=== PATIENT | female | born 1965 | race Caucasian/White ===

== ENCOUNTER 2017-03-31 16:15 | Emergency (ER) | payer OTHER ==
[~2017-03-31] VITALS: Ht 154.9 cm; Wt 55.0 kg
[~2017-03-31 16:15] MED LIST: CYCL-36 PO; DICL50 PO; HYDR-3533 PO
[2017-03-31 16:31] VITALS: BP 122/67; PULSE 65; RESP 16; TEMP 98.3; O2SAT 97
[2017-03-31 16:50] LABS: BILIRUBIN, URINE NEG (NEG); BLOOD, URINE NEG (NEG); GLUCOSE,URINE NEG (NEG); KETONE, URINE TRACE mg/dL (NEG); NITRITE,URINE NEG (NEG); PH, URINE 8.5 (5.0-8.5); URINE LEUKOCYTE ESTERASE SMALL (NEG)
[2017-03-31 16:51] LABS: URINE COLOR YELLOW (YELLW/STRAW)
[2017-03-31 16:55] LABS: BACTERIA, URINE FEW /hpf; RBC, URINE 0-3 /hpf (0-3); SQUAMOUS EPITHELIAL CELL URINE > 8 /hpf (0-5)
[2017-03-31] MEDS ORDERED: SODIUM CHLORIDE 0.9% FLUSH 10 ML FLUSH IV FLUSH PRN (17:15)
[2017-03-31] MEDS ORDERED: KETOROLAC TROMETHAMINE 30 MG/ML (IVP) VIAL IVP ONE (17:15)
[2017-03-31 17:35] LABS: HEMATOCRIT 35.3 % (35.0-46.0); HEMOGLOBIN 12.2 GM/DL (11.6-15.3); MEAN CELL VOLUME 93.1 FL (80.0-100.0); MEAN CORPUSCULAR HEMOGLOBIN 32.2 PG (27.0-34.0); MEAN CORPUSCULAR HGB CONC 34.6 % (32.0-36.0); PLATELET COUNT 260 TH/MM3 (150-450); RED BLOOD COUNT 3.79 MIL/MM3 (4.00-5.30); RED CELL DISTRIBUTION WIDTH 12.6 % (11.6-17.2)
[2017-03-31 17:37] VITALS: RESP 16; O2SAT 98
--- NOTE | 2017-03-31 17:42 | PD ---
HPI Chief Complaint: Musculoskeletal Complaint Time Seen by Provider: 16:58 Travel History International Travel<30 days: No Contact w/Intl Traveler<30days: No Traveled to known affect area: No History of Present Illness HPI Patient is a 51-year-old female presents emergency department for evaluation of left flank pain radiating down her left hip for the past few days, she states that her primary care physician sent her here to rule out a kidney stone. Denies any dysuria, denies any trauma to the area heavy lifting. Denies any nausea vomiting or diarrhea. She states it is highly positional and when she leans to the left her worse. Symptoms are severe, left flank radiating to the left hip, associated signs and symptoms as above PFSH Past Medical History Kidney Stones: Yes Tetanus Vaccination: < 5 Years Influenza Vaccination: Yes ?: Not Menopausal: Yes Past Surgical History Section: Yes (X1 ) Tonsillectomy: Yes Social History Alcohol Use: Yes (occas. wine) Tobacco Use: No Substance Use: No Allergies-Medications (Allergen,Severity, Reaction): Coded Allergies: No Known Allergies (Verified , 03/29/14) Reported Meds & Prescriptions Reported Meds & Active Scripts Active Keflex (Cephalexin) 500 Mg Cap 500 Mg PO Q6H 7 Days Flexeril (Cyclobenzaprine HCl) 10 Mg Tab 10 Mg PO TID Review of Systems Except as stated in HPI: all other systems reviewed are Neg Physical Exam Narrative GENERAL: Well-developed well-nourished appears uncomfortable. SKIN: Focused skin assessment warm/dry. HEAD: Atraumatic. Normocephalic. EYES: Pupils equal and round. No scleral icterus. No injection or drainage. ENT: No nasal bleeding or discharge. Mucous membranes pink and moist. NECK: Trachea midline. No JVD. CARDIOVASCULAR: Regular rate and rhythm. No murmur appreciated. RESPIRATORY: No accessory muscle use. Clear to auscultation. Breath sounds equal bilaterally. GASTROINTESTINAL: Abdomen soft, non-tender, nondistended. Hepatic and splenic margins not palpable. MUSCULOSKELETAL: No obvious deformities. No clubbing. No cyanosis. No edema. No tenderness to the left flank, no bruising over the left abdomen. NEUROLOGICAL: Awake and alert. No obvious cranial nerve deficits. Motor grossly within normal limits. Normal speech. PSYCHIATRIC: Appropriate mood and affect; insight and judgment normal. Data Data Last Documented VS Vital Signs Date Time Temp Pulse Resp B/P (MAP) Pulse Ox O2 Delivery O2 Flow Rate FiO2 03/31/17 19:23 72 18 111/71 (84) 96 03/31/17 17:37 Room Air 03/31/17 16:31 98.3 Orders Orders Urinalysis - C+S If Indicated (03/31/17 16:30) Urine Culture (03/31/17 16:30) Ct Abd/Pel W/O Iv Contrast (03/31/17 ) Complete Blood Count With Diff (03/31/17 17:08) Comprehensive Metabolic Panel (03/31/17 17:08) Iv Access Insert/Monitor (03/31/17 17:08) Ecg Monitoring (03/31/17 17:08) Oximetry (03/31/17 17:08) Sodium Chloride 0.9% Flush (Ns Flush) (03/31/17 17:15) Ketorolac Inj (Toradol Inj) (03/31/17 17:15) Ed Discharge Order (03/31/17 18:39) Labs Laboratory Tests Test 03/31/17 16:30 03/31/17 17:20 03/31/17 17:50 Urine Color YELLOW Urine Turbidity CLEAR Urine pH 8.5 Urine Specific [place] 1.025 Urine Protein NEG mg/dL Urine Glucose (UA) NEG mg/dL Urine Ketones TRACE mg/dL Urine Occult Blood NEG Urine Nitrite NEG Urine Bilirubin NEG Urine Leukocyte Esterase SMALL Urine RBC 0-3 /hpf Urine WBC 25-49 /hpf Urine Squamous Epithelial Cells > 8 /hpf Urine Bacteria FEW /hpf Microscopic Urinalysis Comment CULTURE INDICATED White Blood Count 5.0 TH/MM3 Red Blood Count 3.79 MIL/MM3 Hemoglobin 12.2 GM/DL Hematocrit 35.3 % Mean Corpuscular Volume 93.1 FL Mean Corpuscular Hemoglobin 32.2 PG Mean Corpuscular Hemoglobin Concent 34.6 % Red Cell Distribution Width 12.6 % Platelet Count 260 TH/MM3 Mean Platelet Volume 8.0 FL CBC Comment AUTO DIFF Differential Total Cells Counted 100 Neutrophils % (Manual) 43 % Lymphocytes % 54 % Monocytes % 1 % Eosinophils % 2 % Neutrophils # (Manual) 2.2 TH/MM3 Differential Comment FINAL DIFF MANUAL Platelet Estimate NORMAL Platelet Morphology Comment NORMAL Red Cell Morphology Comment NORMAL Blood Urea Nitrogen 17 MG/DL Creatinine 0.85 MG/DL Random Glucose 95 MG/DL Total Protein 7.4 GM/DL Albumin 3.9 GM/DL Calcium Level 8.5 MG/DL Alkaline Phosphatase 53 U/L Aspartate Amino Transf (AST/SGOT) 14 U/L Alanine Aminotransferase (ALT/SGPT) 25 U/L Total Bilirubin 0.6 MG/DL Sodium Level 141 MEQ/L Potassium Level 3.9 MEQ/L Chloride Level 107 MEQ/L Carbon Dioxide Level 30.8 MEQ/L Anion Gap 3 MEQ/L Estimat Glomerular Filtration Rate 71 ML/MIN [facility] Medical Decision Making Medical Screen Exam Complete: Yes Emergency Medical Condition: Yes Differential Diagnosis Left flank pain, musculoskeletal pain, kidney stone Narrative Course Patient room to the emergency department, uncomfortable on arrival she is given pain medicine, she is planning on driving herself home, initial workup is largely negative, possibly small amount of urinary tract infection but no pyelonephritis on CT and no kidney stone on CT. Discussed with her symptomatic management, she was offered additional pain medicine but declined stating that she had to go home, discuss return to ED criteria, follow-up with a primary care physician. She is stable for discharge Diagnosis Primary Impression: Left flank pain Med/Other Pt SpecificInfo: Prescription(s) given Scripts Cephalexin (Keflex) 500 Mg Cap 500 MG PO Q6H for Infection for 7 Days, #28 CAP 0 Refills Prov: Aristides Ruggiero MD 03/31/17 Cyclobenzaprine (Flexeril) 10 Mg Tab 10 MG PO TID for Muscle Spasm, #20 TAB 0 Refills Prov: Aristides Ruggiero MD 03/31/17 Disposition: 01 DISCHARGE HOME Condition: Stable Aristides Ruggiero MD Mar 31, 2017 17:42
--- NOTE | 2017-03-31 17:58 | RADRPT ---
EXAM DATE/TIME: 03/31/2017 17:42 [facility] COMPARISON: No previous studies available for comparison. INDICATIONS : Left lower back pain. Evaluate for renal stone. ORAL CONTRAST: No oral contrast ingested. RADIATION DOSE: 8.20 CTDIvol (mGy) MEDICAL HISTORY : None SURGICAL HISTORY : section. ENCOUNTER: Initial ACUITY: 4 - 6 days PAIN SCALE: 8/10 LOCATION: Left lower quadrant TECHNIQUE: Volumetric scanning of the abdomen and pelvis was performed. Using automated exposure control and ad justment of the mA and/or kV according to patient size, radiation dose was kept as low as reasonably achievable to obtain optimal diagnostic quality images. DICOM format image data is available electro nically for review and comparison. FINDINGS: LOWER LUNGS: The visualized lower lungs are clear. LIVER: Homogeneous density without lesion. There is no dilation of the biliary tree. No calcified gallston es. Gallbladder seen as a luminal structure without wall thickening. SPLEEN: Normal size without lesion. PANCREAS: Within normal limits. KIDNEYS: Normal in size and shape. There is no mass, stone, or hydronephrosis. ADRENAL GLANDS: Within normal limits. VASCULAR: There is no aortic aneurysm. BOWEL/MESENTERY: The stomach, small bowel, and colon demonstrate no acute abnormality. There is no free intraperitone al air or fluid. Appendix visualized and is normal. ABDOMINAL WALL: Small umbilical hernia containing fat. RETROPERITONEUM: There is no lymphadenopathy. BLADDER: No wall thickening or mass. REPRODUCTIVE: Within normal limits. INGUINAL: There is no lymphadenopathy or hernia. MUSCULOSKELETAL: Within normal limits for patient age. CONCLUSION: Small umbilical hernia containing fat. Otherwise negative examination. Specifically no evidence of renal or ureteral calculi or obstructive uropathy. Ike Metzger MD on March 31, 2017 at 17:51 Board Certified Radiologist. This report was verified electronically.
[2017-03-31 18:02] LABS: LYMPHOCYTES 54 % (9-44); MONOCYTES 1 % (0-8); NEUTROPHIL # MANUAL DIFF 2.2 TH/MM3 (1.8-7.7); POLYS (SEG NEUTROPHILS) 43 % (16-70)
[2017-03-31 18:09] LABS: CHLORIDE 107 MEQ/L (98-107); SODIUM (NA) 141 MEQ/L (136-145)
[2017-03-31 18:12] LABS: CALCIUM 8.5 MG/DL (8.5-10.1)
[2017-03-31 18:13] LABS: ALBUMIN 3.9 GM/DL (3.4-5.0); BICARBONATE 30.8 MEQ/L (21.0-32.0); BLOOD UREA NITROGEN 17 MG/DL (7-18); GLUCOSE,RANDOM 95 MG/DL (74-106)
[2017-03-31 18:16] LABS: ALT (GPT) 25 U/L (10-53); AST (GOT) 14 U/L (15-37); CREATININE 0.85 MG/DL (0.50-1.00); GLOMERULAR FILTRATION RATE 71 ML/MIN (>89)
[2017-03-31 18:17] LABS: TOTAL BILIRUBIN ADULT 0.6 MG/DL (0.2-1.0); TOTAL PROTEIN 7.4 GM/DL (6.4-8.2)
[2017-03-31 18:19] LABS: ALKALINE PHOSPHATASE 53 U/L (45-117)
[2017-03-31 18:32] VITALS: RESP 16
[2017-03-31] MEDS ORDERED: CYCL10TA PO (18:39)
[2017-03-31] MEDS ORDERED: CEPH-460 PO (18:53)
[2017-03-31 19:23] VITALS: BP 111/71
== END 2017-03-31 19:32 | disposition home or self-care (01) ==
LOC: PHED 16:15
DX: R10.9 Unspecified abdominal pain (principal); R82.99 Other abnormal findings in urine; Z87.442 Personal history of urinary calculi
CPT/HCPCS: 74176; 80053; 81001; 85007; 85027; 87086; 96374; 99285; J1885